=== PATIENT | male | born 1970 | race Caucasian/White ===

== ENCOUNTER 2017-01-14 21:25 | Emergency (ER) | payer OTHER, MEDICARE ==
[~2017-01-14 21:25] MED LIST: ANUSOL HC-HEMOR1 SUP RC; COLACE100 MG PO; EMLA TOP; LAMISIL250 M1 PO; LOTRIMIN AF12 GM TOP; QUETIAPINE FUMA25 M1 PO; QUETIAPINE FUMA25 MG PO; SEROQUEL25 M1 PO
[2017-01-14 21:30] VITALS: BP 145/76
--- NOTE | 2017-01-14 21:39 | ED GENERAL ADULT ---
History of Present Illness General Chief Complaint: General Adult Stated Complaint: BIBA FLU LIKE SYMPTOMS Source: patient Exam Limitations: no limitations Vital Signs & Intake/Output Vital Signs & Intake/Output Vital Signs Date Time Temp Pulse Resp B/P Pulse O2 O2 Flow FiO2 Ox Delivery Rate 01/14 2235 91 99 Room Air 01/14 2157 Room Air 01/14 2130 99.1 103 20 145/76 98 Room Air Allergies Coded Allergies: NO KNOWN ALLERGIES (05/18/12) Reconcile Medications Clotrimazole (Lotrimin AF) 12 GM CREAM..G. 1 NUVIA TOP TID PRN FUNGAL INFECTION apply to affected area(s) Quetiapine Fumarate 25 MG TABLET 1 TAB PO QPM MENTAL HEALTH (Reported) Quetiapine Fumarate (Seroquel) 25 MG TABLET 2 TAB PO QAM MENTAL HEALTH ( Reported) Triage Nurses Notes Reviewed? yes Onset: Abrupt Duration: week(s):, intermittent Timing: recent history No Modifying Factors: none HPI: 46-year-old male comes into emergency room for evaluation of feeling dizzy. Patient reports that for the past 3 weeks intermittently has not felt well. He feels fatigued at times. He denies any chest pain shortness of breath. Patient is a very poor historian and is all over the place with the story. He reports that tonight were brought him in was he was walking and he felt slightly dizzy but reports it was very mild. He decided to walk over to the fire house for the ambulance was. They brought him here into the emergency room. He denies any headache vomiting vision loss chest pain shortness of breath abdominal pain. He has a history of mood disorder of some sort is on Seroquel. It is very unclear as to why he is here because he is currently asymptomatic. No SI HI. (ANTONI RAMOS) Past History Medical History Any Pertinent Medical History? 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 No (ANTONI RAMOS) Review of Systems Review of Systems Constitutional: Reports: see HPI. EENTM: Reports: no symptoms. Respiratory: Reports: no symptoms. Cardiovascular: Reports: no symptoms. GI: Reports: no symptoms. Genitourinary: Reports: no symptoms. Musculoskeletal: Reports: no symptoms. Skin: Reports: no symptoms. Neurological/Psychological: Reports: no symptoms. Hematologic/Endocrine: Reports: no symptoms. Immunologic/Allergic: Reports: no symptoms. All Other Systems: Reviewed and Negative (ANTONI RAMOS) Physical Exam Physical Exam General Appearance: well developed/nourished, no apparent distress, alert Head: atraumatic, normal appearance Eyes: Bilateral: normal appearance, PERRL, EOMI. Ears, Nose, Throat: normal pharynx, normal ENT inspection, hearing grossly normal Neck: normal inspection, supple, full range of motion Respiratory: normal breath sounds, chest non-tender, no respiratory distress Cardiovascular: regular rate/rhythm Gastrointestinal: soft Back: normal inspection Extremities: normal inspection, normal range of motion Neurologic/Psych: awake, alert, oriented x 3, normal gait, normal mood/affect Skin: intact, normal color Core Measures ACS in differential dx? Yes CVA/TIA Diagnosis: No Severe Sepsis Present: No Septic Shock Present: No (ANTONI RAMOS) Progress Differential Diagnoses I considered the following diagnoses in my evaluation of the patient: Vertigo electrolyte imbalance, OH, dehydration, labyrinthitis, CVA, bipolar, Plan of Care: Orders Procedure Date/time Status TROPONIN LEVEL 01/14 2138 Complete COMPREHENSIVE METABOLIC PANEL 01/14 2138 Complete CBC WITHOUT DIFFERENTIAL 01/14 2138 Complete EKG 01/14 2138 Active Laboratory Tests 01/14/172148: Anion Gap 9, Estimated GFR > 60, BUN/Creatinine Ratio 21.3, Glucose 80, Calcium 10.1, Total Bilirubin 0.5, AST 20, ALT 31, Alkaline Phosphatase 66, Troponin I < 0.01, Total Protein 7.4, Albumin 4.4, Globulin 3.0, Albumin/Globulin Ratio 1.5, CBC w Diff NO MAN DIFF REQ, RBC 5.11, MCV 93.8, MCH 31.4 H, RDW 12.8, MPV 9.0, Gran % 49.7, Lymphocytes % 39.3, Monocytes % 4.9, Eosinophils % 5.6 H, Basophils % 0.5, Absolute Granulocytes 3.5, Absolute Lymphocytes 2.7, Absolute Monocytes 0.3, Absolute Eosinophils 0.4, Absolute Basophils 0, PUBS MCHC 33.4 Initial ED EKG: normal intervals, normal p-waves, normal QRS complex, normal sinus rhythm, rate (91) (ANTONI RAMOS) Departure Departure Disposition: HOME OR SELF CARE Condition: Stable Clinical Impression Primary Impression: Dizziness Secondary Impressions: Mood disorder Referrals: [facility] (PCP/Family) Additional Instructions: Please follow-up with your primary care doctor. Return to the emergency room if any other concerns worsening symptoms. Please go over all results of today's visit with your primary care doctor. Contact your primary care doctor to let them know you were here in the emergency room. There may be nonspecific findings which may not be related to your visit today here in the emergency room but may require further evaluation and chronic monitoring by your primary care doctor. If you had a laceration today the chance of foreign body always remains. You should follow-up with your primary care doctor for recheck in 3-5 days for a wound check. If you had an x-ray done there is a chance that a fracture could have been missed on initial read and you should follow-up with your primary care doctor for repeat x-rays if symptoms persist. If your blood pressure was elevated here in the emergency room please have rechecked by her primary care doctor within the next 48 hours by your primary care doctor. If you were prescribed a narcotic here in the emergency room or any type of controlled substances you're not allowed to drive while taking this medication or operate any type of heavy machinery. Narcotics can make you feel lightheaded dizziness nausea and can cause constipation. You may need to pear picker a stool softener. Thank you for choosing [facility] emergency room. Please return to the emergency room immediately if you have any other concerns worsening of symptoms. Departure Forms: Customer Survey General Discharge Information Comments 01/15/2017 12:32:38 AM Patient has no focal complaints at the moment with a normal exam. He is a poor historian but is alert and oriented and does not appear to be intoxicated of any sort. EKG and blood work ordered. No acute findings. Patient has no chest pain or shortness of breath here in the emergency room. At this time I feel the patient is safe to be discharged to follow-up with his primary care doctor. Return if any other concerns. Patient understands and agrees with plan of care. (ANTONI RAMOS) PA/SENIOR CONTRACTS ADMINISTRATOR Co-Sign Statement Statement: ED Attending supervision documentation- [] I saw and evaluated the patient. I have also reviewed all the pertinent lab results and diagnostic results. I agree with the findings and the plan of care as documented in the PA's/SENIOR CONTRACTS ADMINISTRATOR's documentation. [x] I have reviewed the ED Record and agree with the PA's/SENIOR CONTRACTS ADMINISTRATOR's documentation. [] Additions or exceptions (if any) to the PAs/SENIOR CONTRACTS ADMINISTRATOR's note and plan are summarized below: [] ([facility],BEREKET Florian) Critical Care Note Critical Care Note Critical Care Time: non-applicable (ANTONI RAMOS)
[2017-01-14 22:02] LABS: ABSOLUTE BASOPHIL COUNT 0 /CUMM (0.0-0.2); ABSOLUTE EOSINOPHIL COUNT 0.4 /CUMM (0.0-0.7); ABSOLUTE GRANULOCYTE CT 3.5 /CUMM (1.4-6.5); ABSOLUTE LYMPH COUNT 2.7 /CUMM (1.2-3.4); ABSOLUTE MONOCYTE COUNT 0.3 /CUMM (0.10-0.60); BASOPHIL % 0.5 % (0.0-2.0); EOSINOPHIL % 5.6 % (0-5); GRANULOCYTE % 49.7 % (42.2-75.2); HEMATOCRIT 47.9 % (42-52); MEAN CORPUSCULAR HGB 31.4 PG (27.0-31.0); MEAN CORPUSCULAR HGB CONC 33.4 G/DL (33.0-37.0); MEAN CORPUSCULAR VOLUME 93.8 FL (80.0-94.0); PLATELET COUNT 231 /CUMM (130-400); RBC DISTRIBUTION WIDTH 12.8 % (11.5-14.5); RED BLOOD CELL CT 5.11 /CUMM (4.70-6.10)
== END 2017-01-14 22:35 ==
LOC: ERH 21:25
PROVIDERS: Physician Assistant Medical
DX: R42 Dizziness and giddiness (principal); F39 Unspecified mood [affective] disorder
CPT/HCPCS: 93005; 93010